=== PATIENT | male | born 1945 | race Caucasian/White ===

== ENCOUNTER 2022-02-01 18:05 | Inpatient (IN) | payer OTHER ==
[~2022-02-01] VITALS: Ht 190.5 cm; Wt 176.9 kg
[2022-02-01 18:09] VITALS: BP 148/85
--- NOTE | 2022-02-01 19:55 | NUR ---
PT BROUGHT TO BED 7 VIA WHEELCHAIR
--- NOTE | 2022-02-01 19:55 | NUR ---
Dr. Teran at bedside to exam patient.
--- NOTE | 2022-02-01 20:01 | NUR ---
Blood for labwork drawn from left arm per assistant professor of religion. Patient tolerated well.
[2022-02-01 20:13] LABS: BASOPHILS # (AUTO) 0.1 K/uL (0.00-0.22); BASOPHILS % (AUTO) 0.6 % (0.0-2.0); EOSINOPHILS # (AUTO) 0.3 K/uL (0-0.4); EOSINOPHILS % (AUTO) 2.6 % (0.0-4.0); HEMATOCRIT 43.1 % (36-52); HEMOGLOBIN 14.4 g/dL (12.0-18.0); LYMPHOCYTES % (AUTO) 9.4 % (20.5-51.1); MEAN CORPUSCULAR HEMOGLOBIN 30 pg (27-31); MEAN CORPUSCULAR HGB CONC 34 g/dL (33-37); MEAN CORPUSCULAR VOLUME 89.8 fL (80-94); MONOCYTES # (AUTO) 0.4 K/uL (0.8-1.0); MONOCYTES % (AUTO) 4.2 % (1.7-9.3); NEUTROPHILS # (AUTO) 8.7 K/uL (1.8-7.7); NEUTROPHILS % (AUTO) 83.2 % (42.2-75.2); PLATELET COUNT (AUTO) 229 K/uL (140-450); WHITE BLOOD COUNT (AUTO) 10.4 K/uL (4.8-10.8)
[2022-02-01 20:27] LABS: ALBUMIN 3.5 g/dL (3.4-5.0); ANION GAP 10.5 (8-16); ASPARTATE AMINOTRANSFERASE 13 U/L (15-37); CARBON DIOXIDE 31.4 mmol/L (21-32); CHLORIDE 102 mmol/L (98-107); CREATININE 1.2 mg/dL (0.6-1.3); GLUCOSE 230 mg/dL (74-106); LIPASE 57 U/L (73-393); POTASSIUM 3.9 mmol/L (3.5-5.1); SODIUM SERUM 140 mmol/L (136-145); TOTAL BILIRUBIN 0.5 mg/dL (0.0-1.0); UREA NITROGEN, BLOOD 29 mg/dL (7-18)
--- NOTE | 2022-02-01 20:44 | NUR ---
Patient transfer to radiology dept for CT scan via gurney.
[2022-02-01] MEDS ORDERED: cefTRIAXone 1,000 MG VIAL ONE (20:59)
--- NOTE | 2022-02-01 21:16 | NUR ---
Patient returned back from CT scan.
--- NOTE | 2022-02-01 22:00 | NUR ---
mariia swab collected and given to laborer in er
--- NOTE | 2022-02-01 23:00 | NUR ---
Amado toney in ED - 02/02/22 at 0038 by TERRANCE 76 YO MALE BIB SON , CHRISTY FOR WORSENING OF WEAKNESS.
--- NOTE | 2022-02-01 23:00 | NUR ---
76 YO MALE BIB SON , CHRISTY FOR WORSENING OF WEAKNESS OF HIS RT HAND. PT HAS BEEN STAYING AT A SNF AND HIS CONDITION W/ DEMENTIA WAS WORSENING. PT FAMILY DID NOT WANT HIM TO BE IN THAT SNF ANYMORE BUT IN ORDER TO TRANSFER HIM TO NEW FACILITY BUT HE NEEDED TO BE CHECKED AT A ER FACILITY FIRST. PT SON STATES THEY WERENT TAKING CARE OF HIM AND HE WAS GETTTING BED SORES. PT WAS ABLE TO WALK PRIOR TO SNF FACILITY. PT IS NOW UNABLE TO AMBULATE. PT IS AXOX3. 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
[2022-02-01] MEDS ORDERED: HYDROcodone/APAP 5/325 MG 1 TAB TAB PO PRN (23:25)
[2022-02-01] MEDS ORDERED: AMLO5TAB PO (23:25)
[2022-02-01] MEDS ORDERED: ONDANSETRON 4 MG/2 ML VIAL IVP PRN (23:25)
[2022-02-01] MEDS ORDERED: MAGNESIUM OXIDE 400 MG TAB PO PRN (23:25)
[2022-02-01] MEDS ORDERED: POTASSIUM CHLORIDE 10 MEQ TABER PO PRN (23:25)
[2022-02-01] MEDS ORDERED: ACETAMINOPHEN 325 MG TAB PO PRN (23:25)
[2022-02-01] MEDS ORDERED: ACET-2619 PO (23:25)
[2022-02-01] MEDS ORDERED: ATOR10TA PO (23:25)
[2022-02-01] MEDS ORDERED: ASPI-1822 PO (23:25)
[2022-02-01] MEDS ORDERED: MORPHINE SULFATE 4 MG/ML SYR IVP PRN (23:25)
[2022-02-01] MEDS ORDERED: VITB12 PO (23:27)
[2022-02-01] MEDS ORDERED: HYDR-1100 PO (23:27)
[2022-02-01] MEDS ORDERED: TRAZ-343 PO (23:30)
[2022-02-01] MEDS ORDERED: MEMA10TA PO (23:30)
[2022-02-01] MEDS ORDERED: LOSA100T1 PO (23:30)
[2022-02-01] MEDS ORDERED: DULO60EC1 PO (23:34)
[2022-02-01] MEDS ORDERED: MAGN400S60 PO (23:34)
[2022-02-01] MEDS ORDERED: BISA-213 RC (23:34)
--- NOTE | 2022-02-01 23:37 | NUR ---
Called In-charge for admission room.
--- NOTE | 2022-02-01 23:56 | NUR ---
URINE COLLECTED VIA STRAIGHT CATH. WALKED OVER TO LAB
--- NOTE | 2022-02-02 00:45 | NUR ---
Patient will be admitted to care of [facility]. Admited to ,MED SURG. Will go to [facility] [address]. Belongings list completed. Report to
--- NOTE | 2022-02-02 00:55 | NUR ---
CHRISTY SON, POWER OF MOUNTER SAXOPHONES, PHONE NUMBER: [phone] HOME: [phone]
--- NOTE | 2022-02-02 00:56 | NUR ---
pt son Edward was called to update him on new room and pt status
[2022-02-02 01:04] LABS: APPEARANCE,URINE CLEAR (CLEAR); BILIRUBIN,URINE NEGATIVE (NEGATIVE); BLOOD, URINE NEGATIVE (NEGATIVE); COLOR,URINE YELLOW (YELLOW); LEUKOCYTE ESTERASE ,URINE 2+ (NEGATIVE); NITRITE, URINE NEGATIVE (NEGATIVE); UGLUCOSE NEGATIVE (NEGATIVE)
[2022-02-02 01:13] LABS: RBC,URINE 0-5 /HPF (0-5); WBC,URINE TOO MANY TO COUNT /HPF (0-5)
[2022-02-02 01:30] VITALS: BP 159/90
--- NOTE | 2022-02-02 01:30 | NUR ---
RECEIVED PATIENT FROM ED PER JUANITA, TRANSFERRED TO BED SAFELY. RESUMED O2 AT 2L/.NC, O2 SAT AT 99%. BREATHING EVEN AND UNLABORED. PATIENT ALERT ORIENTED X2, AWAKE AND CONFUSE. VS TAKEN AND RECORDED. IV FLUID STARTED, NS AT 80 ML/HOUR. BED LOCKED AT LOWEST, WITH CALL LIGHT WITHIN REACH. ADVISED TO CALL FOR FURTHER NEEDS.CALLED SON, VICK FOR ADMISSION DOCUMENTATION.
[2022-02-02] MEDS: NACL 0.9% 1,000 ML IV SCH ×2 (02:18→11:55)
[2022-02-02] MEDS ORDERED: Z-GUARD PASTE TP SCH (03:55)
[2022-02-02 06:21] LABS: ANION GAP 6.9 (8-16); ASPARTATE AMINOTRANSFERASE 15 U/L (15-37); CARBON DIOXIDE 32.6 mmol/L (21-32); CHLORIDE 106 mmol/L (98-107); CREATININE 0.9 mg/dL (0.6-1.3); GLUCOSE 99 mg/dL (74-106); POTASSIUM 3.5 mmol/L (3.5-5.1); SODIUM SERUM 142 mmol/L (136-145); TOTAL BILIRUBIN 0.5 mg/dL (0.0-1.0); UREA NITROGEN, BLOOD 25 mg/dL (7-18)
--- NOTE | 2022-02-02 07:25 | NUR ---
REPORT GIVEN TO MORNING SHIFT NURSE FOR CONTINUITY OF CARE. PATIENT STABLE, RESTING ON BED.
--- NOTE | 2022-02-02 07:26 | NUR ---
RECEIVED REPORT FROM POURED WALL FOREMAN NURSE FOR CONTINUITY OF CARE. PT IN BED RESTING AT THIS TIME. RESPIRATIONS ARE EVEN AND UNLABORED. PT IS ON 2L 02 VIA NC. NO SIGNS OF DISTRESS NOTED. PT HAS DX OF DEMENTIA, ALERT AND ORIENTED X2. PT ABD IS NONTENDER, NONDISTENDED WITH BOWEL SOUNDS PRESENT. PT IS INCONTINENT OF BOWEL AND BLADDER. PT CC IS GENERAL WEAKNESS. PT HAS FULL ROM TO UPPER EXTREMITIES HOWEVER HAS DIFFICULTY WITH ROM TO LOWER EXTREMITIES. PT HAS IV TO R AC 20G. CALL LIGHT WITHIN REACH. ALL SAFETY MEASURES IN PLACE. WILL CONTINUE TO MONITOR.
[2022-02-02 08:00] VITALS: BP 156/83
--- NOTE | 2022-02-02 08:35 | NUR ---
PATIENT HAS BEEN SCREENED AND CATEGORIZED LOW NUTRITION RISK. PATIENT WILL BE SEEN WITHIN 7 DAYS OF ADMISSION. 02/08/[address]
[2022-02-02] MEDS: Z-GUARD PASTE TP SCH ×2 (09:30→21:54)
--- NOTE | 2022-02-02 09:30 | NUR ---
ADMINISTERED SCHEDULED MEDICATIONS. EDUCATED PT ON MEDS ADMINISTERED. WILL CONTINUE TO MONITOR.
--- NOTE | 2022-02-02 11:43 | NUR ---
PT PULLED OUT IV. WILL ATTEMPT IV ACCESS.
--- NOTE | 2022-02-02 12:50 | NUR ---
DC PLANNING: THE PATIENT WAS BIB FAMILY FOR C/O ALOC AND DECONDITIONING. H/O DEMENTIA, HAS BEEN A RESIDENT AT [facility] BUT FAMILY DOES NOT WANT HIM TO RETURN THERE. CT HEAD SHOWS ATHEROSCLEROSIS, CXR SHOWS RIGHT BASILAR ATELECTASIS. INITIAL LACTIC ACID WAS ELEVATED, US SHOWS BACTERIA, WBC'S AND LEUK ESTERASE, PATIENT HAS H/O RECURRENT UTI'S. STARTED ON ROCEPHIN AND IVF'S, PT EVAL DONE TODAY. CM SPOKE WITH THE PATIENTS SON CHRISTY BY PHONE WHO STATES THAT HIS FATHER HAS BEEN NON-AMBULATORY AND A HIGH RISK FOR FALLS. PATIENT HAS BEEN IN BED OR IN A WC WITH DIAPERS AT HIS LAST FACILITY AND WAS HALFWAY. CHRISTY HAS ARRANGED FOR THE PATIENT TO GO TO [facility] AND IS IN PROCESS OF CHANGING THE PATIENTS INSURANCE TO [employer]. CM SPOKE WITH RONALDO AT [employer] WHO CONFIRMED THAT THE PATIENT IS ACCEPTED AND THAT THEY ARE SPEAKING WITH [employer] FOR AUTHORIZATION. PATIENT WILL GO TO [facility] WHEN CLINICALLY STABLE AND WILL ASK [employer] TO ASSIST WITH TRANSPORT. CM WILL FOLLOW. Addendum: 02/02/22 at 1308 by Yojana Humphrey CM Amended: Links added. Addendum: 02/03/22 at 1657 by Rebeka Ruelas RN DC PLANNING: [facility] [email or web address] WORK [phone] SPOKE WITH MYRTLE HENRY, ERI PT'S CLINICAL. STATED PATIENT CAN GO BACK TO [facility] WHEN STABLE FOR DC. SHE PROVIDED THE PENDING AUTH# [id number] DC PLAN TO RETURN TO [facility]. CM TO FOLLOW Addendum: 02/04/22 at 1216 by Yojana Humphrey CM DC PLANNING: MYRTLE SPOKE WITH RONALDO AT [facility], ASKING THAT CLINICAL PACKET BE FAXED (DONE). CM CONFIRMED THAT THE PATIENT WILL HAVE A BARIATRIC BED BECAUSE OF HIS SIZE AND ALSO THAT [facility] WILL ASSIST WITH TRANSPORT. CM WILL FOLLOW. Addendum: 02/04/22 at 1458 by Yojana Humphrey CM DC PLANNING: PATIENT TO DC TODAY TO [facility]. ROOM NUMBER [id number], DR KIM TO FOLLOW, NUMBER TO CALL REPORT IS [phone], [facility] WORKING ON TRANSPORT, [employer] CHAIR TIME NOT YET DETERMINED. MYRTLE ALSO SPOKE WITH SHAYE VAZQUEZ AT [employer] ([phone]) TO CONFIRM AUTHORIZATION FOR SNF, SHE STATES THERE IS NO AUTH NUMBER IN THE SYSTEM AND THE MACHINE CONTAINER WASHER WHO GAVE THE AUTH IS NOT BACK UNTIL TOMORROW. CM ASKED THAT THEY EXPEDITE GETTING AN AUTH NUMBER, SHAYE VAZQUEZ WILL TEXT HER LEAD CM. MYRTLE ALSO SPOKE WITH RONALDO AT [facility], UNABLE TO ARRANGE TRANSPORT UNTIL TOMORROW BECAUSE OF THE PATIENTS WEIGHT, RONALDO WILL ARRANGE FOR TOMORROW AND LET MYRTLE KNOW THE TIME. MYRTLE WILL FOLLOW. Addendum: 02/05/22 at 0902 by Yojana Humphrey CM DC PLANNING: MYRTLE SPOKE WITH TYRONE AT [employer] ([phone]), STATES THAT THE PATIENT IS HALFWAY AND THAT A DENIAL HAS BEEN SENT TO [facility]. MYRTLE THEN SPOKE WITH RONALDO AT [facility] TO LET HER KNOW THAT THERE WILL BE NO AUTH NUMBER. RONALDO HAS TRANSPORT SET UP FOR 5 PM, WILL CALL COMPANY AND SEE IF THEY ARE ABLE TO [employer] CHAIR PATIENT EARLIER. MYRTLE ENDORSED PLAN TO THE PATIENTS NURSE JAI. MYRTLE WILL FOLLOW. Addendum: 02/05/22 at 1116 by Yojana Humphrey CM DC PLANNING: TRANSPORT COMPANY FOR PATIENT DISCHARGE IS [employer], PHONE NUMBER [phone]. MYRTLE WILL FOLLOW. Addendum: 02/05/22 at 1358 by Yojana Humphrey CM DC PLANNING: MYRTLE SPOKE WITH THE PATIENTS SON CHRISTY TO MAKE HIM AWARE OF THE TIME FOR DISCHARGE AND TRANSPORT TO [facility], HE WILL BE HERE AND STAY WITH HIS FATHER UNTIL HE LEAVES THE HOSPITAL. CM WILL FOLLOW.
--- NOTE | 2022-02-02 13:24 | NUR ---
ATTEMPT IV ACCESS X3, NO SUCCESS. OTHER STAFF ATTEMPT IV ACCESS, UNSUCCESSFUL. DR MEHTA MADE AWARE. WILL FOLLOW UP AND ATTEMPT AGAIN.
[2022-02-02 16:00] VITALS: BP 143/80
--- NOTE | 2022-02-02 16:00 | NUR ---
NEW IV ACCESS. LEFT HAND INDEX FINGER 22 G. INTACT. WILL CONTINUE TO MONITOR.
--- NOTE | 2022-02-02 16:50 | NUR ---
DID ROUND ON PT. FAMILY AT BEDSIDE. FAMILY ASKED FOR UPDATE ON PT. GAVE UPDATE. INFORMED FAMILY OF PLAN OF CARE. ANSWERED ALL QUESTIONS. PT IS SLEEPING AT THIS TIME. RESPIRATIONS ARE EVEN AND UNLABORED. WILL CONTINUE TO MONITOR.
--- NOTE | 2022-02-02 19:22 | NUR ---
ENDORSED PT TO HOLE DIGGER NURSE FOR CONTINUITY OF CARE. ALL NEEDS MET THROUGHOUT SHIFT. PT IS STABLE.
--- NOTE | 2022-02-02 19:30 | NUR ---
RECEIVED PATIENT RESTING ON BED. BREATHING EVEN AND UNLABORED WITH 02 AT 2L/NC. IV SITE ON LEFT INDEX FINGER INTACT, FLUSHING WELL. PATIENT HAVE NO COMPLAINTS OF PAIN AT THIS TIME. WILL CONTINUE TO MONITOR AND ASSESS PATIENT.
[2022-02-02] MEDS ORDERED: MAGNESIUM HYDROXIDE 2400 MG/30 ML UDC PO SCH (20:10)
[2022-02-02] MEDS ORDERED: bisacodyL 10 MG SUPP RC SCH (20:10)
--- NOTE | 2022-02-02 20:55 | NUR ---
Patient was transported to radiology at this time per bed for ct ab/pelvis. Maintained on 2L/NC oxygen.
--- NOTE | 2022-02-02 21:30 | NUR ---
PATIENT BACK FROM CT. RESTING ON BED AT THIS TIME. NO SIGNS OF DISTRESS.
[2022-02-02] MEDS: traZODone 50 MG TAB PO SCH (21:53)
[2022-02-02] MEDS: hydrALAZINE 25 MG TAB PO SCH (21:53)
[2022-02-02] MEDS: ATORVASTATIN 20 MG TAB PO SCH (21:54)
[2022-02-03] VITALS: BP 131/74
[2022-02-03] MEDS: NACL 0.9% 1,000 ML IV SCH ×2 (00:11→12:22)
[2022-02-03 05:10] VITALS: BP 150/72
[2022-02-03] MEDS: hydrALAZINE 25 MG TAB PO SCH ×3 (05:15→21:22)
[2022-02-03 06:29] LABS: ALBUMIN 2.6 g/dL (3.4-5.0); ANION GAP 8.5 (8-16); ASPARTATE AMINOTRANSFERASE 15 U/L (15-37); CARBON DIOXIDE 31.2 mmol/L (21-32); CHLORIDE 107 mmol/L (98-107); CREATININE 1.1 mg/dL (0.6-1.3); GLUCOSE 89 mg/dL (74-106); POTASSIUM 3.7 mmol/L (3.5-5.1); SODIUM SERUM 143 mmol/L (136-145); TOTAL BILIRUBIN 0.4 mg/dL (0.0-1.0); UREA NITROGEN, BLOOD 28 mg/dL (7-18)
[2022-02-03] MEDS ORDERED: bisacodyL 10 MG SUPP RC PRN (07:06)
--- NOTE | 2022-02-03 07:29 | NUR ---
REPORT GIVEN TO MORNING SHIFT NURSE FOR CONTINUITY OF CARE. PATIENT STABLE AND RESTING ON BED.
--- NOTE | 2022-02-03 07:30 | NUR ---
RECEIVED PT FROM ASSOCIATE SPA DIRECTOR NURSE. PT IS SLEEPING. BREATHING EVEN AND UNLABORED ON 2L/NC. NO SIGNS OF DISTRESS NOTED. A&O2. IV ON R WRIST G22 INFUSING NS @ 80 mL/HR. REDNESS NOTED ON SACRAL AREA. SAFETY PRECAUTIONS IN PLACE. CALL LIGHT WITHIN REACH. WILL CONTINUE TO MONITOR.
[2022-02-03] MEDS: CYANOCOBALAMIN 100 MCG TAB PO SCH (09:30)
[2022-02-03] MEDS: LOSARTAN 50 MG TAB PO SCH (09:30)
[2022-02-03] MEDS: ASPIRIN 81 MG TAB.CHEW PO SCH (09:31)
[2022-02-03] MEDS: DULoxetine 30 MG CAPDR PO SCH (09:31)
[2022-02-03] MEDS: MEMANTINE 10 MG TAB PO SCH (09:31)
[2022-02-03] MEDS: amLODIPine 5 MG TAB PO SCH (09:31)
[2022-02-03] MEDS: Z-GUARD PASTE TP SCH ×2 (09:38→21:46)
--- NOTE | 2022-02-03 09:45 | NUR ---
ADMINISTERED SCHEDULED MORNING MEDS. EDUCATED PT ABOUT MEDS GIVEN. WILL CONTINUE TO MONITOR.
--- NOTE | 2022-02-03 10:04 | NUR ---
PT. WITH PT AND RT. ASSISTED WITH HIS THERAPY. PT TOLERATED WELL. PT CAN TOLERATE ROOM AIR PER RT. WILL CONTINUE TO MONITOR.
--- NOTE | 2022-02-03 10:38 | NUR ---
ASSISTED FIELD CROP FARM WORKER IN CHANGING AND REPOSITIONING. PT TOLERATED WELL. SAFETY PRECAUTIONS LEFT PLACE. WILL CONTINUE TO MONITOR
--- NOTE | 2022-02-03 10:56 | NUR ---
PT. ADMITTED WITH LOW IVSHNU SCALE AT HIGH RISK, PT. WITH GENERALIZED EDEMA, PT ADMITTED WITH MOISTURE ASSOCIATED DERMATITIS TO BUTTOCKS, SKIN RED AND MOIST, GOOD IVETTE CARE PROVIDES, Z GUARD APPLIED. BILATERAL HEELS BLANCHABLE REDNESS, SKIN INTACT.CONTINUE TO FOLLOW PRESSURE INJURY PREVENTION INTERVENTIONS. [facility] BARIATRIC BED ORDERED. RECOMMENDATIONS -IVETTE CARE Q2H AND PRN IF SOILING AND APPLY Z GUARD BID AND PRN IF SOILING -POSITIONING: TURN AND REPOSITION PATIENT Q 2H OR SOONER USE PILLOWS TO KEEP BONY PROMINENCES FROM DIRECT CONTACT WITH SURFACES USE REPOSITIONING WEDGES TO PROVIDE 30-DEGREE ANGLE FOR SIDE LYING POSITIONS OFFLOADING OR FOAM DRESSING TO ALL TUBING TO PREVENT MEDICAL DEVICES RELATED PRESSURE INJURY -RE-EVALUATING AND MANAGING INCONTINENCE MONITOR SKIN CONDITION DURING POSITION CHANGE DO NOT MASSAGE REDNESS, BONY PROMINENCES, DO NOT USE DONUT-TYPE DEVICES FREQUENT IVETTE-CARE AND PROVIDE BARRIER CREAMS PRN IF SOILING MOISTURE CONTROL BY OFFER BED ABBOTT/URINAL /ABSORBENT PAD TO WICK AND HOLD MOISTURE KEEP SKIN DRY AND PROTECT FROM FRICTION -MANAGE FRICTION/SHEAR/MOBILITY KEEP HOB AT THE LOWEST LEVEL OF ELEVATION NO MORE THAN 30 DEGREE UNLESS OTHERWISE CONTRAINDICATED USE LIFT SHEET OR TRANSFER DEVICE TO MOVE PATIENT AND PREVENT LATERAL SHEER. PROTECT HEELS, ELBOWS BONY PROMINENCES WITH SKIN BERRIES OR FOAM DRESSING IF EXPOSED TO FRICTION OFFLOAD BILATERAL HEELS BY PLACING PILLOWS UNDER CALVES AT ALL TIMES, UNLESS OTHERWISE CONTRAINDICATED -PRESSURE REDISTRIBUTION SURFACE THERAPY [facility] TOTAL CARE BARIATRIC BED -NUTRITION: PLEASE FOLLOW RD RECOMMENDATIONS AND OFFER NUTRITION SUPPLEMENTS IF ORDERED.
--- NOTE | 2022-02-03 13:08 | NUR ---
PT IN BED, RESTING. BREATHING EVEN AND UNLABORED. NO SIGNS OF DISTRESS NOTED. CALL LIGHT WITHIN REACH. SAFETY MEASURES IN PLACE. WILL CONTINUE TO MONITOR.
[2022-02-03 16:00] VITALS: BP 143/75
--- NOTE | 2022-02-03 17:00 | NUR ---
PT WAS MOVED TO A [facility] BARIATRIC BED.
--- NOTE | 2022-02-03 17:52 | NUR ---
PT's O2 SAT 92%. CALLED RT TO CHECK. RT CONFIRMED IT'S GOOD. WILL CONTINUE TO MONITOR.
--- NOTE | 2022-02-03 19:26 | NUR ---
ENDORSED PT TO UNDER SHERIFF NURSE FOR CONTINUITY OF CARE. ALL NEEDS MET THROUGHOUT SHIFT. PT. IS STABLE.
[2022-02-03] MEDS: traZODone 50 MG TAB PO SCH (21:24)
[2022-02-03] MEDS: ATORVASTATIN 20 MG TAB PO SCH (21:27)
[2022-02-04] MEDS: NACL 0.9% 1,000 ML IV SCH ×2 (02:48→13:38)
[2022-02-04] MEDS: hydrALAZINE 25 MG TAB PO SCH ×3 (04:35→21:20)
[2022-02-04 07:42] LABS: ALBUMIN 2.9 g/dL (3.4-5.0); ANION GAP 7.5 (8-16); ASPARTATE AMINOTRANSFERASE 14 U/L (15-37); CARBON DIOXIDE 32.2 mmol/L (21-32); CHLORIDE 107 mmol/L (98-107); CREATININE 1.1 mg/dL (0.6-1.3); GLUCOSE 95 mg/dL (74-106); POTASSIUM 3.7 mmol/L (3.5-5.1); SODIUM SERUM 143 mmol/L (136-145); TOTAL BILIRUBIN 0.7 mg/dL (0.0-1.0); UREA NITROGEN, BLOOD 29 mg/dL (7-18)
[2022-02-04 08:00] VITALS: BP 149/74
[2022-02-04] MEDS: ASPIRIN 81 MG TAB.CHEW PO SCH (09:52)
[2022-02-04] MEDS: CYANOCOBALAMIN 100 MCG TAB PO SCH (09:53)
[2022-02-04] MEDS: DULoxetine 30 MG CAPDR PO SCH (09:53)
[2022-02-04] MEDS: amLODIPine 5 MG TAB PO SCH (09:54)
[2022-02-04] MEDS: LOSARTAN 50 MG TAB PO SCH (09:54)
[2022-02-04] MEDS: MEMANTINE 10 MG TAB PO SCH (09:55)
[2022-02-04] MEDS: Z-GUARD PASTE TP SCH ×2 (10:04→21:21)
--- NOTE | 2022-02-04 12:00 | NUR ---
PATIENT IS A 76 YEAR OLD MALE ADMITTED DUE TO DECONDITIONING AND WORSENING MENTAL STATUS. PATIENT HAS HX. OF 2 PRIOR STROKES AND DEMENTIA. SW MEET WITH PATIENT AT BEDSIDE PATIENT WAS AWAKE AND ALERT ABLE TO PROVIDE HIS OWN INFORMATION. PATIENT COMES FROM AN ASSISTING LIVING IN [place] AND ACCORDING TO HIS SON HE IS NOT TO RETURNED TO THE NURSING FACILITY INSTEAD PATIENT WILL BE GOING TO [facility] WHEN HE IS READY FOR DC. PATIENT REPORTED HAVING A POA ALREADY IN PLACE WITH SON CHRISTY LOUIS HIS EMERGENCY CONTACT AND MEDICAL DESICION MAKER. PATIENT HAS FAMILY SUPPORT FROM HIS SON WHO IS VERY INVOLVED ON HIS CARE. PATIENT HAS NO ISSUES GETTING OR TAKING HIS MEDICATIONS AND IS ON AGREEMENT TO CONTINUE WITH PLAN TO DC TO [facility] WHEN HE IS DISCHARGE. SW WILL FOLLOW UP NEEDED. SW ATTEMPTED TO CONTACT PATIENT'S SON CHRISTY LOUIS AT . HE WAS NOT AVAILABLE AND SW LEFT HIM A MSG REQUESTING A CALL BACK ON DIRECT NUMBER. SW WILL FOLLOW UP NEEDED.
[2022-02-04] MEDS ORDERED: CEFU500T73 PO (14:11)
[2022-02-04 18:00] VITALS: BP 146/68
--- NOTE | 2022-02-04 19:27 | NUR ---
RECEIVED PATIENT FROM BHARAT EDOUARD FOR CONTINUITY OF CARE. PATIENT IS STABLE IN BED. PATIENT IS ALERT AND ORIENTED X 1. DENIES ANY PAIN/DISCOMFORT. ON ROOM AIR. RESPIRATIONS EVEN AND UNLABORED. IV SITE CLEAN AND PATENT ON THE RIGHT ARM WITH 22 BERNADETTE. SKIN INTACT. PATIENT IS BEDREST NON AMBULATORY. THE LOWEST POSITION SIDE RAILS X 2 FOR ASSISTANCE AND SAFETY. CALL LIGHT IN REACH. PATIENT WAS ENCOURAGED TO USE THE CALL LIGHT FOR ALL NEEDS AND ASSISTANCE AND NURSING WILL CHECK IN MORE FOR ANTICIPATED NEEDS. WILL CONTINUE TO MONITOR. [id number]
[2022-02-04 20:00] VITALS: BP 139/70
--- NOTE | 2022-02-04 20:30 | NUR ---
REVIEWED PLAN OF CARE WITH LUIGI LUNA LVN AND WILL CONTINUE WITH PLAN OF CARE.
[2022-02-04] MEDS: traZODone 50 MG TAB PO SCH (21:20)
[2022-02-04] MEDS: ATORVASTATIN 20 MG TAB PO SCH (21:21)
--- NOTE | 2022-02-04 21:27 | NUR ---
PATIENT RECEIVED ALL ORAL MEDICATIONS PER MD ORDERS. PT TOLERATED WELL. DENIES PAIN. RESPIRATIONS EVEN AND UNLABORED WITH NO APPARENT S/SX OF ACUTE DISTRESS. OFFERED SNACK AND PT DECLINED. WHITE COMMUNICATION BOARD UPDATED. ALL SAFETY MEASURES ARE IN PLACE. CALL LIGHT WITHIN REACH. WILL CONTINUE TO MONITOR.
--- NOTE | 2022-02-04 23:27 | NUR ---
PATIENT IN BED ASLEEP WITHOUT DISTRESS. NOTED ACUTE RESPIRATORY DISTRESS. ALL SAFETY MEASURES ARE IN PLACE. CALL LIGHT WITHIN REACH. WILL CONTINUE TO MONITOR.
--- NOTE | 2022-02-05 01:27 | NUR ---
PATIENT IN BED ASLEEP WITHOUT DISTRESS. NOTED ACUTE RESPIRATORY DISTRESS. ALL SAFETY MEASURES ARE IN PLACE. CALL LIGHT WITHIN REACH. WILL CONTINUE TO MONITOR.
[2022-02-05] MEDS: NACL 0.9% 1,000 ML IV SCH ×2 (02:25→15:17)
--- NOTE | 2022-02-05 03:27 | NUR ---
CHECKED PT. STABLE AND ASLEEP. CHEST IS RISING AND FALLING. RESPIRATIONS EVEN AND UNLABORED WITH NO APPARENT S/SX OF ACUTE DISTRESS. WHITE COMMUNICATION BOARD UPDATED. ALL SAFETY MEASURES IN PLACE. CALL LIGHT WITHIN REACH. WILL CONTINUE TO MONITOR.
[2022-02-05 04:00] VITALS: BP 140/80
--- NOTE | 2022-02-05 05:27 | NUR ---
PATIENT REMAINS IN BE ASLEEP. NO NOTED S/SX OR RESPIRATORY DISTRESS. NO NOTED ACUTE PAIN/DISCOMFORT. SAFETY MEASURES ARE IN PLACE. CALL LIGHT WITHIN REACH. WILL CONTINUE TO MONITOR.
[2022-02-05] MEDS: hydrALAZINE 25 MG TAB PO SCH ×2 (05:45→13:20)
[2022-02-05 06:35] LABS: ALBUMIN 2.7 g/dL (3.4-5.0); ASPARTATE AMINOTRANSFERASE 12 U/L (15-37); CHLORIDE 108 mmol/L (98-107); CREATININE 0.9 mg/dL (0.6-1.3); GLUCOSE 96 mg/dL (74-106); POTASSIUM 3.5 mmol/L (3.5-5.1); SODIUM SERUM 143 mmol/L (136-145); TOTAL BILIRUBIN 0.5 mg/dL (0.0-1.0); UREA NITROGEN, BLOOD 21 mg/dL (7-18)
[2022-02-05 07:01] LABS: ANION GAP 9.1 (8-16); CARBON DIOXIDE 29.4 mmol/L (21-32)
--- NOTE | 2022-02-05 07:11 | NUR ---
ENDORSED PATIENT TO JAI RAMESH FOR CONTINUITY OF CARE. PATIENT IS STABLE.
--- NOTE | 2022-02-05 07:20 | NUR ---
PATIENT AWAKE ABLE TO RESPOND VERBALLY RESPIRATION EVEN AND NOT LABORED NO SHORTNESS OF BREATH. RECEIVED REPORT FROM MILKING WORKER NURSE FOR CONTINUITY OF CARE.
--- NOTE | 2022-02-05 08:00 | NUR ---
Patient's Plan of Care was discussed and reviewed with JAI RAMESH
--- NOTE | 2022-02-05 08:30 | NUR ---
PATIENT SPOON FEED BY ELECTRICAL ASSEMBLY SUPERVISOR TOLERATED WELL DIET AT ORDER.
[2022-02-05] MEDS: DULoxetine 30 MG CAPDR PO SCH (09:40)
[2022-02-05] MEDS: ASPIRIN 81 MG TAB.CHEW PO SCH (09:41)
[2022-02-05] MEDS: LOSARTAN 50 MG TAB PO SCH (09:41)
[2022-02-05] MEDS: amLODIPine 5 MG TAB PO SCH (09:41)
[2022-02-05] MEDS: CYANOCOBALAMIN 100 MCG TAB PO SCH (09:42)
[2022-02-05] MEDS: MEMANTINE 10 MG TAB PO SCH (09:42)
[2022-02-05] MEDS: Z-GUARD PASTE TP SCH (09:45)
--- NOTE | 2022-02-05 09:45 | NUR ---
PATIENT AWAKE NO DISTRESS NOTED GIVEN ALL DUE MEDICATION TOLERATED WELL. CALL LIGHT WITH IN EASY REACH.
--- NOTE | 2022-02-05 11:30 | NUR ---
PATIENT CHANGE AND PUT HYDRO GUARD ON SACRAL AREA REDNESS SKIN INTACT. TOLERATED WELL.
--- NOTE | 2022-02-05 14:02 | NUR ---
[facility] SPOKE TO NURSE AMARILIS GAVE REPORT FOR CONTINUITY OF CARE.
[2022-02-05 16:00] VITALS: BP 109/67
--- NOTE | 2022-02-05 18:15 | NUR ---
PATIENT ALERT. SON AT BED SIDE SINCE 5 PM HE SHAVE HIS FATHER. WE CHANGE HIM AND PUT T SHIRT ON HIM SON ASKED TO. 3 FACILITY STAFF WITH THE HELP OF THE SON WE TRANSFER PATIENT TO WHEELCHAIR. REMOVED NAME BAND, IV SITE WITH CATHETER IN TACT. BELONGING GIVEN TO SON AND DISCHARGE PACKET GIVEN TO BE GIVEN TO FACILITY. PATIENT WHEELED BY TRANSFORATION SALES REPRESENTATIVE FACILITY SERVICES TO THE TRANSPORT VAN.
== END 2022-02-05 18:15 | DRG 689 ==
LOC: MED 18:05 → MMU 23:30 → MTU 02-02 00:07
PROVIDERS: ADMIT Internal Medicine; ATTEND Internal Medicine
DX: N39.0 Urinary tract infection, site not specified (principal); G93.41 Metabolic encephalopathy; Z68.42 Body mass index [BMI] 45.0-49.9, adult; F03.90 Unspecified dementia, unspecified severity, without behavioral disturbance, psychotic disturbance, mood disturbance, and anxiety; E66.01 Morbid (severe) obesity due to excess calories; B96.20 Unspecified Escherichia coli [E. coli] as the cause of diseases classified elsewhere; N32.3 Diverticulum of bladder; N28.1 Cyst of kidney, acquired; Z20.822 Contact with and (suspected) exposure to COVID-19
CPT/HCPCS: 36415; 70450; 71045; 80053; 81001; 83605; 83690; 85025; 87040; 87081; 87086; 96365; 97110; 97112; 97163-GP; 97530; 99285; C1758; J0696; J1644; J7060

== ENCOUNTER 2024-07-21 10:05 | Inpatient (IN) | payer OTHER ==
[~2024-07-21] VITALS: Ht 190.5 cm; Wt 136.6 kg
[~2024-07-21 10:05] MED LIST: ACET-2619 PO; AMLO5TAB PO; ASPI-1822 PO; ATOR10TA PO; BISA-213 RC; CEFU500T73 PO; DULO60EC1 PO; HYDR-1100 PO; LOSA-272 PO; MAGN400S60 PO; MEMA10TA22 PO; TRAZ-343 PO; VITB12 PO
[2024-07-21 10:07] VITALS: BP 139/83; PULSE 76; RESP 16; TEMP 97.6; O2SAT 96
[2024-07-21] MEDS ORDERED: ATOR20TA PO (10:49)
[2024-07-21] MEDS ORDERED: ATI.5 PO (10:49)
[2024-07-21] MEDS ORDERED: APIX5TAB PO (10:49)
[2024-07-21] MEDS ORDERED: ERTA1VIA2 IM (10:49)
[2024-07-21] MEDS ORDERED: DOCU-299 PO (10:49)
[2024-07-21 11:22] LABS: BASOPHILS % (AUTO) 0.7 % (0.0-2.0); EOSINOPHILS # (AUTO) 0.2 K/uL (0-0.4); EOSINOPHILS % (AUTO) 3.5 % (0.0-4.0); HEMOGLOBIN 13.2 g/dL (12.0-18.0); LYMPHOCYTES # (AUTO) 0.9 K/uL (2.0-11.5); LYMPHOCYTES % (AUTO) 15.7 % (20.5-51.1); MEAN CORPUSCULAR HEMOGLOBIN 29 pg (27-31); MEAN CORPUSCULAR HGB CONC 33 g/dL (33-37); MEAN CORPUSCULAR VOLUME 87.2 fL (80-94); MONOCYTES # (AUTO) 0.4 K/uL (0.8-1.0); MONOCYTES % (AUTO) 6.5 % (1.7-9.3); NEUTROPHILS # (AUTO) 4.2 K/uL (1.8-7.7); NEUTROPHILS % (AUTO) 73.6 % (42.2-75.2); PLATELET COUNT (AUTO) 193 K/uL (140-450); RED BLOOD CELL COUNT(AUTO) 4.59 MIL/uL (4.20-6.10); RED CELL DISTRIBUTION WIDTH 16.2 % (11.6-13.7); WHITE BLOOD COUNT (AUTO) 5.8 K/uL (4.8-10.8)
[2024-07-21 11:41] LABS: BILIRUBIN,URINE NEGATIVE (NEGATIVE); BLOOD, URINE NEGATIVE (NEGATIVE); COLOR,URINE YELLOW (YELLOW); LEUKOCYTE ESTERASE ,URINE 3+ (NEGATIVE); NITRITE, URINE POSITIVE (NEGATIVE); PH,URINE 7.5 (5.0-9.0); PROTEIN,URINE TRACE (NEGATIVE); UGLUCOSE NEGATIVE (NEGATIVE); UROBILINOGEN,URINE 0.2 EU/dL (0.2 - 1)
[2024-07-21 11:47] LABS: ALANINE AMINOTRANSFERASE 23 U/L (12-78); ALBUMIN 3.4 g/dL (3.4-5.0); ALKALINE PHOSPHATASE 99 U/L (50-136); ASPARTATE AMINOTRANSFERASE 15 U/L (15-37); BILIRUBIN,DIRECT 0.2 mg/dL (0.0-0.3); TOTAL BILIRUBIN 0.8 mg/dL (0.0-1.0)
[2024-07-21 11:49] LABS: CALCIUM 8.8 mg/dL (8.5-10.1); CARBON DIOXIDE 32.5 mmol/L (21-32); CHLORIDE 102 mmol/L (98-107); CREATININE 0.9 mg/dL (0.6-1.3); GLUCOSE 89 mg/dL (74-106); POTASSIUM 3.5 mmol/L (3.5-5.1); SODIUM SERUM 138 mmol/L (136-145); UREA NITROGEN, BLOOD 17 mg/dL (7-18)
[2024-07-21 11:56] LABS: APPEARANCE,URINE CLOUDY (CLEAR)
[2024-07-21 11:59] LABS: BACTERIA,URINE 3+ /HPF (None Seen); MUCUS,URINE 3+ /LPF (None Seen); WBC,URINE >25 (MANY) /HPF (0-5)
[2024-07-21 12:00] LABS: SQUAMOUS EPITHELIAL CELL,UR >10 (MANY) /LPF (0-3 (FEW))
[2024-07-21] MEDS ORDERED: cefTRIAXone 1,000 MG VIAL ONE (12:27)
[2024-07-21 15:10] VITALS: BP 152/79; PULSE 71; PULSE 77; RESP 18; TEMP 97.6; O2SAT 96
[2024-07-21 16:20] VITALS: PULSE 71; RESP 18; O2SAT 96
[2024-07-21] MEDS ORDERED: ONDANSETRON 4 MG/2 ML VIAL IVP PRN (19:05)
[2024-07-21] MEDS ORDERED: ACETAMINOPHEN 325 MG TAB PO PRN (19:05)
[2024-07-21] MEDS ORDERED: HYDROcodone/APAP 7.5/325 MG 1 TAB PO PRN (19:05)
[2024-07-21] MEDS ORDERED: POTASSIUM CHLORIDE 10 MEQ TABER PO PRN (19:05)
[2024-07-21] MEDS ORDERED: LORazepam 0.5 MG TAB PO SCH (19:05)
[2024-07-21] MEDS: NACL 0.9% 1,000 ML IV SCH (19:05)
[2024-07-21] MEDS ORDERED: MAG SULF 2000 MG/WATER PREMIX 50 ML IV PRN (19:05)
[2024-07-21 19:25] VITALS: O2SAT 92
[2024-07-21 20:00] VITALS: BP 150/72; PULSE 77; PULSE 80; PULSE 82; RESP 18; TEMP 97.6; O2SAT 92; O2SAT 96
[2024-07-21 22:44] LABS: BASOPHILS % (AUTO) 0.8 % (0.0-2.0); EOSINOPHILS # (AUTO) 0.3 K/uL (0-0.4); EOSINOPHILS % (AUTO) 6.3 % (0.0-4.0); HEMATOCRIT 35.2 % (36-52); HEMOGLOBIN 11.7 g/dL (12.0-18.0); LYMPHOCYTES # (AUTO) 1.3 K/uL (2.0-11.5); LYMPHOCYTES % (AUTO) 23.3 % (20.5-51.1); MEAN CORPUSCULAR HEMOGLOBIN 29 pg (27-31); MEAN CORPUSCULAR HGB CONC 33 g/dL (33-37); MEAN CORPUSCULAR VOLUME 86.8 fL (80-94); MONOCYTES # (AUTO) 0.4 K/uL (0.8-1.0); MONOCYTES % (AUTO) 7.6 % (1.7-9.3); NEUTROPHILS # (AUTO) 3.4 K/uL (1.8-7.7); PLATELET COUNT (AUTO) 174 K/uL (140-450); RED BLOOD CELL COUNT(AUTO) 4.06 MIL/uL (4.20-6.10); RED CELL DISTRIBUTION WIDTH 16.3 % (11.6-13.7); WHITE BLOOD COUNT (AUTO) 5.5 K/uL (4.8-10.8)
[2024-07-21 22:55] LABS: INR 1.19 (0.8-1.2); PARTIAL THROMBOPLASTIN TIME 25.9 secs (22-35.6); PROTHROMBIN TIME 12.4 secs (10.8-13.4)
[2024-07-21] MEDS: ATORVASTATIN 20 MG TAB PO SCH (23:01)
[2024-07-21] MEDS: hydrALAZINE 25 MG TAB PO SCH (23:01)
[2024-07-21] MEDS: traZODone 50 MG TAB PO SCH (23:02)
[2024-07-21] MEDS: DOCUSATE SODIUM 100 MG GELCAP PO SCH (23:03)
[2024-07-21] MEDS: APIXABAN 2.5 MG TAB PO SCH (23:05)
[2024-07-21 23:07] LABS: LACTIC ACID 0.6 mmol/L (0.4-2.0)
[2024-07-21 23:14] LABS: CHOL/HDL RATIO 2.8 (1-4.5); FREE T4 (FREE THYROXINE) 1.1 ng/dL (0.76-1.46); MAGNESIUM 1.7 mg/dL (1.8-2.4); PHOSPHORUS 3.2 mg/dL (2.5-4.9); THYROID STIMULATING HORMONE 2.74 uIU/mL (0.34-3.74)
[2024-07-21 23:51] LABS: ANION GAP 6.4 (8-16); CALCIUM 8.8 mg/dL (8.5-10.1); CARBON DIOXIDE 32.1 mmol/L (21-32); CHLORIDE 106 mmol/L (98-107); CREATININE 0.7 mg/dL (0.6-1.3); GLUCOSE 83 mg/dL (74-106); POTASSIUM 3.5 mmol/L (3.5-5.1); SODIUM SERUM 141 mmol/L (136-145); UREA NITROGEN, BLOOD 15 mg/dL (7-18)
[2024-07-22] VITALS (11 sets, daily range): BP systolic 113–150; BP diastolic 65–84; PULSE 57–82; RESP 18; TEMP 96.5–98.2; O2SAT 92–99
[2024-07-22 06:48] LABS: BASOPHILS # (AUTO) 0.1 K/uL (0.00-0.22); BASOPHILS % (AUTO) 1.1 % (0.0-2.0); EOSINOPHILS # (AUTO) 0.3 K/uL (0-0.4); EOSINOPHILS % (AUTO) 6.3 % (0.0-4.0); HEMATOCRIT 35.8 % (36-52); HEMOGLOBIN 11.7 g/dL (12.0-18.0); LYMPHOCYTES # (AUTO) 1.1 K/uL (2.0-11.5); LYMPHOCYTES % (AUTO) 21.8 % (20.5-51.1); MEAN CORPUSCULAR HEMOGLOBIN 29 pg (27-31); MEAN CORPUSCULAR HGB CONC 33 g/dL (33-37); MEAN CORPUSCULAR VOLUME 88.4 fL (80-94); MONOCYTES # (AUTO) 0.4 K/uL (0.8-1.0); MONOCYTES % (AUTO) 7.5 % (1.7-9.3); NEUTROPHILS # (AUTO) 3.2 K/uL (1.8-7.7); NEUTROPHILS % (AUTO) 63.3 % (42.2-75.2); PLATELET COUNT (AUTO) 182 K/uL (140-450); RED BLOOD CELL COUNT(AUTO) 4.05 MIL/uL (4.20-6.10); RED CELL DISTRIBUTION WIDTH 16.5 % (11.6-13.7); WHITE BLOOD COUNT (AUTO) 5.1 K/uL (4.8-10.8)
[2024-07-22 07:20] LABS: ANION GAP 6.5 (8-16); CALCIUM 8.6 mg/dL (8.5-10.1); CARBON DIOXIDE 32.1 mmol/L (21-32); CHLORIDE 105 mmol/L (98-107); CREATININE 0.8 mg/dL (0.6-1.3); GLUCOSE 72 mg/dL (74-106); POTASSIUM 3.6 mmol/L (3.5-5.1); SODIUM SERUM 140 mmol/L (136-145); UREA NITROGEN, BLOOD 15 mg/dL (7-18)
[2024-07-22 07:25] LABS: MAGNESIUM 1.8 mg/dL (1.8-2.4); PHOSPHORUS 4.1 mg/dL (2.5-4.9)
[2024-07-22] MEDS: DULoxetine 30 MG CAPDR PO SCH (09:07)
[2024-07-22] MEDS: PANTOPRAZOLE 40 MG INJ VIAL IVP SCH (09:07)
[2024-07-22] MEDS: LOSARTAN 50 MG TAB PO SCH (09:09)
[2024-07-22] MEDS: amLODIPine 5 MG TAB PO SCH (09:09)
[2024-07-22] MEDS: MEMANTINE 10 MG TAB PO SCH (09:09)
[2024-07-23] VITALS (9 sets, daily range): BP systolic 101–137; BP diastolic 60–81; PULSE 57–81; RESP 18–19; TEMP 97.1–98.6; O2SAT 94–99
[2024-07-23 06:49] LABS: BASOPHILS # (AUTO) 0.1 K/uL (0.00-0.22); BASOPHILS % (AUTO) 0.8 % (0.0-2.0); EOSINOPHILS # (AUTO) 0.4 K/uL (0-0.4); EOSINOPHILS % (AUTO) 6.5 % (0.0-4.0); HEMATOCRIT 33.9 % (36-52); HEMOGLOBIN 11.3 g/dL (12.0-18.0); LYMPHOCYTES # (AUTO) 1.4 K/uL (2.0-11.5); LYMPHOCYTES % (AUTO) 20.3 % (20.5-51.1); MEAN CORPUSCULAR HEMOGLOBIN 29 pg (27-31); MEAN CORPUSCULAR HGB CONC 33 g/dL (33-37); MEAN CORPUSCULAR VOLUME 87.4 fL (80-94); MONOCYTES # (AUTO) 0.5 K/uL (0.8-1.0); MONOCYTES % (AUTO) 8.2 % (1.7-9.3); NEUTROPHILS # (AUTO) 4.3 K/uL (1.8-7.7); NEUTROPHILS % (AUTO) 64.2 % (42.2-75.2); PLATELET COUNT (AUTO) 183 K/uL (140-450); RED BLOOD CELL COUNT(AUTO) 3.88 MIL/uL (4.20-6.10); RED CELL DISTRIBUTION WIDTH 16.1 % (11.6-13.7); WHITE BLOOD COUNT (AUTO) 6.7 K/uL (4.8-10.8)
[2024-07-23 07:12] LABS: MAGNESIUM 1.6 mg/dL (1.8-2.4); PHOSPHORUS 3.7 mg/dL (2.5-4.9)
[2024-07-23 07:16] LABS: ANION GAP 6.5 (8-16); CALCIUM 8.4 mg/dL (8.5-10.1); CARBON DIOXIDE 32.1 mmol/L (21-32); CHLORIDE 105 mmol/L (98-107); CREATININE 0.9 mg/dL (0.6-1.3); GLUCOSE 84 mg/dL (74-106); POTASSIUM 3.6 mmol/L (3.5-5.1); SODIUM SERUM 140 mmol/L (136-145); UREA NITROGEN, BLOOD 22 mg/dL (7-18)
[2024-07-23] MEDS ORDERED: GENTAMICIN PER PHARMACY MC PRN (17:50)
[2024-07-23] MEDS ORDERED: GENTAMICIN 300 MG in DEXTROSE 5% 100 ML IV ONE (17:50)
[2024-07-23] MEDS: GENTAMICIN IV SCH (18:58)
[2024-07-23] MEDS: DEXTROSE 5% IV SCH (18:58)
[2024-07-24] VITALS (7 sets, daily range): BP systolic 116–146; BP diastolic 50–69; PULSE 60–71; RESP 18–20; TEMP 96.1–98.1; O2SAT 93–99
[2024-07-24 06:47] LABS: BASOPHILS # (AUTO) 0.1 K/uL (0.00-0.22); BASOPHILS % (AUTO) 1.1 % (0.0-2.0); EOSINOPHILS # (AUTO) 0.5 K/uL (0-0.4); EOSINOPHILS % (AUTO) 10.3 % (0.0-4.0); HEMATOCRIT 32.1 % (36-52); HEMOGLOBIN 10.8 g/dL (12.0-18.0); LYMPHOCYTES # (AUTO) 1.2 K/uL (2.0-11.5); LYMPHOCYTES % (AUTO) 24.8 % (20.5-51.1); MEAN CORPUSCULAR HEMOGLOBIN 29 pg (27-31); MEAN CORPUSCULAR HGB CONC 34 g/dL (33-37); MEAN CORPUSCULAR VOLUME 87.4 fL (80-94); MONOCYTES # (AUTO) 0.4 K/uL (0.8-1.0); MONOCYTES % (AUTO) 9.3 % (1.7-9.3); NEUTROPHILS # (AUTO) 2.6 K/uL (1.8-7.7); NEUTROPHILS % (AUTO) 54.5 % (42.2-75.2); PLATELET COUNT (AUTO) 178 K/uL (140-450); RED BLOOD CELL COUNT(AUTO) 3.67 MIL/uL (4.20-6.10); RED CELL DISTRIBUTION WIDTH 16.6 % (11.6-13.7); WHITE BLOOD COUNT (AUTO) 4.7 K/uL (4.8-10.8)
[2024-07-24 07:04] LABS: MAGNESIUM 1.9 mg/dL (1.8-2.4); PHOSPHORUS 3.5 mg/dL (2.5-4.9)
[2024-07-24 07:06] LABS: ANION GAP 8.8 (8-16); CALCIUM 8.1 mg/dL (8.5-10.1); CARBON DIOXIDE 30.9 mmol/L (21-32); CHLORIDE 105 mmol/L (98-107); CREATININE 0.9 mg/dL (0.6-1.3); GLUCOSE 110 mg/dL (74-106); POTASSIUM 3.7 mmol/L (3.5-5.1); SODIUM SERUM 141 mmol/L (136-145); UREA NITROGEN, BLOOD 25 mg/dL (7-18)
[2024-07-24] MEDS ORDERED: ERTA1VIA2 IV (13:29)
== END 2024-07-24 19:35 | DRG 640 ==
LOC: MED 10:05 → MTU 13:05
DX: E86.0 Dehydration (principal); G93.41 Metabolic encephalopathy; N30.00 Acute cystitis without hematuria; I48.91 Unspecified atrial fibrillation; I25.10 Atherosclerotic heart disease of native coronary artery without angina pectoris; I10 Essential (primary) hypertension; F03.90 Unspecified dementia, unspecified severity, without behavioral disturbance, psychotic disturbance, mood disturbance, and anxiety; E78.5 Hyperlipidemia, unspecified; B96.20 Unspecified Escherichia coli [E. coli] as the cause of diseases classified elsewhere; K59.00 Constipation, unspecified; G47.00 Insomnia, unspecified; F32.9 Major depressive disorder, single episode, unspecified; Z86.73 Personal history of transient ischemic attack (TIA), and cerebral infarction without residual deficits
CPT/HCPCS: 36415; 70450; 71045; 76770; 80048; 80076; 80170; 81001; 82140; 82150; 83036; 83605; 83690; 83735; 83880; 84100; 84439; 84443; 84484; 85025; 85610; 85730; 87040; 87081; 87086; 87186; 93005; 96365; 97112; 97530; 99285; J0696; J1580; J2470; J7060; Q0092